=== PATIENT | male | born 1945 | race Caucasian/White ===

== ENCOUNTER 2017-10-14 06:37 | Day surgery (SDC) | payer OTHER, BC ==
[2017-10-09 12:16] VITALS: BMI 31.1
[2017-10-14] MEDS: CIPROFLOXACIN 0.3% EYE DROPS 5 ML BOTTLE ONE ×3 (07:15→07:25)
[2017-10-14] MEDS: CYCLOPENTOLATE 2% OPHTH SOLN 2 ML BOTTLE ONE ×3 (07:15→07:25)
[2017-10-14] MEDS: TROPICAMIDE 1% OPHTH SOLN 15 ML BOTTLE ONE ×3 (07:15→07:25)
[2017-10-14] MEDS: PHENYLEPHRINE 2.5% OPHTH SOLN 15 ML BOTTLE ONE ×3 (07:15→07:25)
[2017-10-14] MEDS ORDERED: TETRACAINE 0.5% OPHTH SOLN 2 ML BOTTLE ONE (07:23)
[2017-10-14] MEDS ORDERED: LIDOCAINE 1% P/F 10 MG/ML VIAL ONE (07:23)
[2017-10-14] MEDS ORDERED: CARBACHOL 0.01% INTRA-OCULAR 1.5 ML VIAL ONE (07:24)
[2017-10-14] MEDS ORDERED: BSS (NA/CA/MG/K) BALANCED SALT SOLUTION OPHTH SOLN 15 ML BOTTLE ONE (07:24)
[2017-10-14] MEDS ORDERED: NEO/POLYMYX B SULF/DEXAMETH OPHTHALMIC 5ML BOTTLE ONE (07:24)
[2017-10-14] MEDS ORDERED: MIDAZOLAM HCL 2 MG/2 ML SINGLE DOSE VIAL ONE ×2 (07:34→08:14)
[2017-10-14 08:45] VITALS: TEMP 97.9
--- NOTE | 2017-10-14 08:58 | OP ---
DATE OF OPERATION: 10/14/2017 OPERATIVE PROCEDURE: Lens phacoemulsification with posterior chamber intraocular lens placement, left eye. PREOPERATIVE DIAGNOSIS: Visually significant cataract of left eye. POSTOPERATIVE DIAGNOSIS: Visually significant cataract of left eye. SURGEON: Jules Mina MD ANESTHESIA: MAC. PROCEDURE: The patient was brought to the operating room and placed under monitored anesthesia care by Anesthesia. A drop of Tetracaine was then placed over the left eye. The patient was then prepped and draped in the usual sterile manner. A speculum was then placed over the left eye. The eye was then well irrigated with copious amounts of BSS (balanced salt solution). The operating microscope was then moved into position. A paracentesis was performed using a 15-degree blade. At this point, 0.5 mL of 1% preservative-free lidocaine was injected into the anterior chamber. Amvisc Plus was then injected into the anterior chamber. A clear corneal incision was then formed using a 2.2-mm keratome. A capsulorrhexis was then performed in a continuous circular fashion beginning with a cystotome, completed with an Utratas forceps. Hydrodissection was then performed using BSS on a cannula. The phaco probe was then introduced through the corneal wound and the cataract was removed using the phaco chop technique. Approximately 3 seconds of absolute phaco time was used. The remaining cortex was then removed using irrigation and aspiration with an I/A probe. he capsule was then filled with regular Amvisc and the capsule was noted to be intact. A previously selected foldable posterior chamber intraocular lens was then injected into the capsule through the corneal wound using a lens injector. It was then dialed into position using a Sinskey hook. The Amvisc was then removed using irrigation and aspiration. Miostat was then injected through the paracentesis to constrict the pupil. The paracentesis and corneal wound were then hydrated and noted to be water tight. A drop of Maxitrol was then placed over the eye. The speculum was removed and clear shield was taped over the eye. The patient tolerated the procedure well and there were no surgical complications. The patient was asked to follow up in my office the next day. JULES MINA M.D. [id number]
[2017-10-14 09:20] VITALS: BP 122/74; PULSE 58
== END 2017-10-14 09:25 | disposition home or self-care (01) ==
LOC: FASU 06:37
PROVIDERS: ATTEND Ophthalmology
PROC: 08RK3JZ Replacement of Left Lens with Synthetic Substitute, Percutaneous Approach (ICD-10-PCS; principal; 2017-10-14 08:16)
DX: H26.8 Other specified cataract (principal)

== ENCOUNTER 2017-12-08 19:46 | Observation (INO) | payer OTHER, BC ==
--- NOTE | 2017-12-08 20:08 | PDOC ---
History of Present Illness - General Stated Complaint: LEFT WEAKNESS/NUMBNESS Time Seen by Provider: 12/08/17 19:58 - History of Present Illness Initial Comments: 12/08/17 20:04 The patient is a 72 year old male with a history of HTN, HLD, DM who presents for evaluation of left sided numbness and weakness. The patient reports onset of left sided numbness and weakness beginning at 6:45 pm this evening about 1 hour 14 minutes ago prompting his presentation to the ED for evaluation. He reports worsening symptoms that then improved, then worsened, and now are improved. He currently denies any weakness, but does note some numbness in his left extremities. He otherwise denies fevers, chills, headache, SOB, chest pain , nausea, vomiting, abdominal pain or changes with urination or bowel movements. He denies any blood thinner use or similar symptoms in the past. tPA Exclusion Checklist 0-3hr - Time Elapsed Date last known well: 12/08/17 Time last known well: 18:45 Elaspsed time: Day(s) and 2 Hour(s) and 58 Minutes - Exclusion Criteria 0-3hr SBP greater than 185 or DBP greater than 110mmHg despite tx: No Recent IC/spinal surgery,head trauma or stroke w/in last 3mo: No Hx of previous IC hemorrhage, IC neoplasm, AVM or aneurysm: No Active internal bleeding: No Blding diathesis(low plt ct, inc PTT,INR>1.7 or use of NOAC): No Symptoms suggest subarachnoid hemorrhage: No CT demonstrates multilobar infarct(>1/3 cerebral hemiphere): No Arterial puncture at noncompressible site in previous 7 days: No Blood glucose concentration less than 50mg/dL (2.7mmol/L): No - Relative Exclusion Criteria 0-3h Life expectancy <1yr/severe co-morbid illness/TAX ACCOUNTING ASSISTANT on admit: No : No Patient/family refused: No Rapid improvement: Yes Stroke severity too mild: Yes Recent acute RI (w/in previous 3 months): No Seizure at onset with postictal residual neuro impairments: No Major surgery or serious trauma w/in previous 14 days: No Recent GI or hemorrhage (w/in previous 21 days): No - Ineligibility reason(s) Reasons No tPA given: See reason(s) noted above NIH Stroke Scale - Last Known Well Date/Time & Onset Date Last Known Well: 12/08/17 Time Last Known Well: 18:45 - Initial Evaluation Level of consciousness: Alert Ask patient the month and their age: Answers both correctly Ask patient to open & close eyes; make fist and let go: Obeys both correctly Best gaze (horizontal eye movement): Normal Visual field testing: No visual field loss Facial paresis (Show teeth/raise eyebrows/close eyes tight): Normal symmetrical movement Motor Function: Left Arm: Normal Motor Function: Right Arm: Normal (extends arm 90 (or 45) degrees for 10 seconds without drift Motor Function: Left Leg: Normal (extends leg 30 degrees for 5 seconds without drift) Motor Function: Right Leg: Normal (extends leg 30 degrees for 5 seconds without drift) Limb Ataxia: No ataxia Sensory(Use pinprick test arms,legs,trunk,face/side to side): Mild to moderate decrease in sensation Best language (Describe picture, name items, read sentences): No Aphasia Dysarthria (read several words): Normal articulation Extinction and Inattention: No abnormality - Total Score NIH Stroke Scale Score: 1 Past History - Past Medical History Allergies/Adverse Reactions: Allergies Allergy/AdvReac Type Severity Reaction Status Date / Time No Known Drug Allergies Allergy Verified 10/14/17 07:24 Home Medications: Ambulatory Orders Aspirin [Aspir 81] 81 mg PO DAILY 12/05/16 Atorvastatin Calcium 40 mg PO DAILY tablet 12/05/16 Chlorthalidone 12.5 mg PO DAILY tablet 12/05/16 Cholecalciferol (Vitamin D3) [Vitamin D3] 2,000 unit PO DAILY tablet 12/05/16 Metoprolol Succinate 25 mg PO DAILY tablet 03/16/17 Metformin HCl [Glucophage] 1,000 mg PO DAILY 10/09/17 Anemia: No Asthma: No (PT HAD TERRIBLE BRONCHITIS IN OCTOBER AND WAS SEEN IN ER 2016) Cancer: No Cardiac Disorders: No (RHEUMATIC FEVER A CHILD) CVA: No COPD: No CHF: No Dementia: No Diabetes: Yes GI Disorders: No Disorders: No HTN: Yes Hypercholesterolemia: Yes Liver Disease: No Seizures: No Thyroid Disease: No - Surgical History Abdominal Surgery: Yes (HERNIA REPAIR ACHILD) Appendectomy: No Cardiac Surgery: No Cholecystectomy: No Lung Surgery: No Neurologic Surgery: No Orthopedic Surgery: No - Suicide/Smoking/Psychosocial Hx Smoking History: Former smoker Have you smoked in the past 12 months: No If you are a former smoker, when did you quit?: 1987 Hx Alcohol Use: Yes (DAILY) Drug/Substance Use Hx: No Substance Use Type: Alcohol Hx Substance Use Treatment: No Review of Systems - Review of Systems Comments:: 12/08/17 20:22 Constitutional: No fevers, chills, fatigue, malaise HEENT: No Rhinorrhea, nasal congestion, visual changes Cardiovascular: No chest pain, syncope, palpitations, lightheadedness Respiratory: No Cough, SOB, Hemoptysis, Gastrointestinal: No Abdominal pain, Nausea, Vomiting, Constipation, Diarrhea, Melena Genitourinary: No Dysuria, Frequency, Urgency, Hesitancy, Hematuria, Flank pain Musculoskeletal: No Myalgia, arthralgia Skin: No rashes, itching, bruising, pallor Neurologic: Weakness, numbness. No Headache, Dizziness, or Tingling Psychiatric: No Hallucinations. No SI or HI *Physical Exam - Physical Exam Comments: 12/08/17 20:31 General Appearance: Nourished. No Apparent Distress HEENT: EOMI, RASHEED. No Pharyngeal Erythema, Tonsillar Exudate, Tonsillar Erythema Neck: No Cervical Lymphadenopathy Respiratory/Chest: Lungs Clear, Normal Breath Sounds. No Crackles, Rales, Rhonchi, Wheezing Cardiovascular: Regular Rhythm, Regular Rate. No Murmur, Gallops, Rubs Gastrointestinal/Abdominal: Normal Bowel Sounds, Soft. No Guarding, Rebound, Tenderness Musculoskeletal: No CVA Tenderness Extremity: Normal Capillary Refill Integumentary: Normal Color, Dry, Warm Neurologic: sheet taker II-XII NML intact, Fully Oriented, Alert, Normal Mood/Affect, Normal Response, Motor Strength 5/5. Normal Finger to Nose and Heel to Feliz. Decreased sensation to light touch in the left upper and left lower extremity when compared to the right. Normal Speech without aphasia. Heart Score/ECG Review #1 ECG reviewed & interpreted by me at: 21:44 (RBBB) General ECG Interpretation: Sinus Rhythm, Normal Rate, Normal Intervals, No acute ischemic changes Compared to previous ECG there are: Previous ECG unavail ED Treatment Course - LABORATORY CBC & Chemistry Diagram: 12/08/17 20:30 12/08/17 20:30 - RADIOLOGY Radiology Studies Ordered: Category Date Time Status HEAD CT (STROKE) [CT] Stat CT Scan 12/08/17 19:59 Ordered Medical Decision Making - Medical Decision Making 12/08/17 20:38 The patient is a 72 year old male with a history of HTN, HLD, DM who presents for evaluation of left sided numbness and weakness. Given the patient's history it is possible the patient experienced a TIA. A Code Grimm was called and head CT was obtained that did not demonstrate any acute pathology as read by our radiologist. The patient does not qualify for tpa at this time given his mild symptoms and rapid resolution of symptoms. We discussed the case with Dr. Dominguez with Neurology who is aware of the case and agrees with admission for MRI brain for further evaluation. We have obtained a cbc, cmp, lipid profile, troponin, as part of the lab work to evaluate further as well. We will continue to monitor and reassess. 12/08/17 21:43 CBC, cmp are unremarkable. Troponin is mildly elevated to 0.12. We discussed the case with the hospitalist team who accepted the patient for admission. We discussed the results and the plan with the patient who voiced understanding and is agreeable with the plan. *DC/Admit/Observation/Transfer Diagnosis at time of Disposition: TIA (transient ischemic attack) Qualifiers: Transient cerebral ischemia type: unspecified Qualified Code(s): G45.9 - Transient cerebral ischemic attack, unspecified - Discharge Dispostion Condition at time of disposition: Guarded Admit: Yes - Referrals - Patient Instructions - Post Discharge Activity
[2017-12-08] MEDS: SODIUM CHLORIDE 1,000 ML IV SCH (20:35)
[2017-12-08] MEDS ORDERED: ASPIRIN 81 MG CHEWABLE TABLETS PO ONE (20:35)
[2017-12-08 20:40] LABS: EOS % 4.8 % (0-4.5); HEMATOCRIT 38.6 % (35.4-49); HEMOGLOBIN 12.9 GM/dL (11.7-16.9); LYMPH % 32.7 % (8-40); MCH 31.3 pg (25.7-33.7); MCHC 33.4 g/dl (32.0-35.9); MEAN CELL VOLUME 93.7 fl (80-96); MEAN PLT VOLUME 8.6 fl (7.5-11.1); NEUT % 52.5 % (42.8-82.8); PLATELET COUNT 214 K/MM3 (134-434); RBC 4.12 M/mm3 (4.00-5.60); RDW 12.5 % (11.9-15.9); WHITE BLOOD COUNT 6.4 K/mm3 (4.0-10.0)
[2017-12-08 20:50] VITALS: BMI 31.1
[2017-12-08 20:52] LABS: INR 1.02 (0.82-1.09); PROTHROMBIN TIME (PATIENT) 11.5 SEC (9.98-11.88)
[2017-12-08] MEDS ORDERED: ASPIRIN 81 MG CHEWABLE TABLETS ONE (20:52)
[2017-12-08 21:01] LABS: ALBUMIN 3.8 g/dl (3.4-5.0); ANION GAP 5 (8-16); BILIRUBIN,TOTAL 0.4 mg/dL (0.2-1.0); BLOOD UREA NITROGEN 15 mg/dL (7-18); CALCIUM 8.5 mg/dL (8.5-10.1); CHLORIDE 105 mmol/L (98-107); CHOLESTEROL 112 mg/dL (50-200); CO2 31 mmol/L (21-32); GLUCOSE,RANDOM 130 mg/dL (74-106); LDL CHOLESTEROL (ONLY SJRH) 65 mg/dL (5-100); POTASSIUM 3.7 mmol/L (3.5-5.1); SGOT/AST 21 U/L (15-37); SGPT/ALT 26 U/L (12-78); SODIUM 141 mmol/L (136-145); TOT PROT 6.7 g/dl (6.4-8.2); TRIGLYCERIDES 92 mg/dL (35-160)
[2017-12-08 21:02] LABS: ALK PHOS 72 U/L (45-117); HDL CHOLESTEROL 43 mg/dL (40-60)
--- NOTE | 2017-12-08 22:14 | PDOC ---
Attending Attestation - Resident Resident Name: Jordi Wei - ED Attending Attestation I have performed the following: I have examined & evaluated the patient, The case was reviewed & discussed with the resident, I agree w/resident's findings & plan, Exceptions are as noted - HPI HPI: 12/08/17 22:12 Male brought in by ambulance after having left-sided weakness that started at 645. Upon arrival, patient was alert and oriented 3 and had an iron stroke scale of 1 for the left sided tingling and numbness. CAT scan of the head did not show any acute intracranial pathology, no hemorrhage, no infarct Neurologist Dr. KRISHNAMURTHY was consulted and patient was given aspirin and admitted to telemetry stroke - Physicial Exam PE: 12/08/17 22:14 72-year-old male brought in by ambulance with numbness and tingling to his arm, left arm and leg. Head normocephalic/atraumatic. Eyes pupils equal, reactive to light, extraocular movement intact. Neck is supple Lungs are clear to auscultation. CVS regular rate and rhythm S1, S2 Abdomen nontender. Extremities full range of motion. Skin is warm and dry. Alert and oriented 3, no facial droop, no slurred speech, no confusion, he does have subjective numbness and tingling to left arm and le -HE no ataxia, no visual deficits, no neglect or field cuts - Medical Decision Making 12/08/17 22:16 cva no TPA because SYMPTOMS TOO MILD
--- NOTE | 2017-12-08 22:20 | HP ---
CHIEF COMPLAINT: Recurrent L sided weakness and numbness X1 day PCP: Dr Tyler Epps (cardio) HISTORY OF PRESENT ILLNESS: Pt is a 72 yo M with PMHx of HTN, HLD, DM presenting with 1 day hx of recurrent L sided weakness and numbness. Pt noted a "floating sensation" of his L side from his neck to his leg following exertion ( walking uphill then up the stairs to his room) around 6.30pm today. After resting for a while (in the presence of his ), they called 911. Pt walked downstairs independently to meet the EMS, but then had recurrence of the weakness of his L side. No hx of palpitations prior or during the period. No SOB, orthopnea/PND/ leg swelling /chest pain/slurring of speech/blurring of vision or headaches. No fever, loss of consciousness or seizures. 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 No hx of similar illness in past. No recent sick contacts. Pt has been compliant on his medications, last dose this am, and is active. In the ambulance, Pt noted that his blood pressure was elevated to about 170/90 and has gradually reverted back to about 130/80. On arrival at the ED, Pt's symptoms had resolved with NIH score-1 and pt did not receive tPA. Dr Dominguez was also contacted in the ED and he requested an MRI of the brain. ER course was notable for: (1)Trops-0.12, CKMB-8.388, EKG- poor tracings, but no evidence of acute ischemia (2)ASA 81, Normal saline (3) CT head- no acute pathology, CXR- cardiomegaly (4) Lipid panel, CMP, CBC Recent Travel: PAST MEDICAL HISTORY: HTN, HLD, DM PAST SURGICAL HISTORY: Herniorrhaphy (at 3yrs) Social History: Smoking:smoked pipe for 20years, stopped 30years ago Alcohol:Social Drugs: Never Family History: No FHx of cardiac pathology or DM Allergies No Known Drug Allergies Allergy (Verified 10/14/17 07:24) HOME MEDICATIONS: Home Medications Medication Instructions Recorded Aspirin [Aspir 81] 81 mg PO DAILY 12/05/16 Atorvastatin Calcium 40 mg PO DAILY tablet 12/05/16 Chlorthalidone 12.5 mg PO DAILY tablet 12/05/16 Cholecalciferol (Vitamin D3) 2,000 unit PO DAILY tablet 12/05/16 [Vitamin D3] Metoprolol Succinate 25 mg PO DAILY tablet 03/16/17 Metformin HCl [Glucophage] 1,000 mg PO DAILY 10/09/17 REVIEW OF SYSTEMS CONSTITUTIONAL: Absent: fever, chills, diaphoresis, generalized weakness, malaise, loss of appetite, weight change HEENT: Absent: rhinorrhea, nasal congestion, throat pain, throat swelling, difficulty swallowing, mouth swelling, ear pain, eye pain, visual changes CARDIOVASCULAR: Absent: chest pain, syncope, palpitations, irregular heart rate, lightheadedness , peripheral edema RESPIRATORY: Absent: cough, shortness of breath, dyspnea with exertion, orthopnea, wheezing, stridor, hemoptysis GASTROINTESTINAL: Absent: abdominal pain, abdominal distension, nausea, vomiting, diarrhea, constipation, melena, hematochezia GENITOURINARY: Absent: dysuria, frequency, urgency, hesitancy, hematuria, flank pain, genital pain MUSCULOSKELETAL: Absent: myalgia, arthralgia, joint swelling, back pain, neck pain SKIN: Absent: rash, itching, pallor HEMATOLOGIC/IMMUNOLOGIC: Absent: easy bleeding, easy bruising, lymphadenopathy, frequent infections ENDOCRINE: Absent: unexplained weight gain, unexplained weight loss, heat intolerance, cold intolerance NEUROLOGIC: Absent: headache, focal weakness or paresthesias, dizziness, unsteady gait, seizure, mental status changes, bladder or bowel incontinence PSYCHIATRIC: Absent: anxiety, depression, suicidal or homicidal ideation, hallucinations. PHYSICAL EXAMINATION Vital Signs - 24 hr 12/08/17 19:55 Temperature 98.0 F Pulse Rate 63 Respiratory 17 Rate Blood Pressure 137/83 O2 Sat by Pulse 97 Oximetry (%) GENERAL: Obese, pleasant, Awake, alert, and fully oriented, obeys commands,in no acute distress, on room air. HEAD: Normal with no signs of trauma. EYES: Normal gaze, Pupils equal, round and reactive to light, extraocular movements intact, sclera anicteric, conjunctiva clear. EARS, NOSE, THROAT: Ears normal, nares patent, oropharynx clear without exudates. Moist mucous membranes. NECK: Normal range of motion, supple without lymphadenopathy, JVD, or masses. LUNGS: Breath sounds equal, clear to auscultation bilaterally. No wheezes, and no crackles. HEART: Regular rate and rhythm, normal S1 and S2 without murmur, rub or gallop. ABDOMEN: Soft, nontender, obese, normoactive bowel sounds, no guarding, no rebound, no masses. MUSCULOSKELETAL: Normal range of motion at all joints. No bony deformities or tenderness. No CVA tenderness. UPPER EXTREMITIES: 2+ pulses, warm, well-perfused. No cyanosis. No clubbing. No peripheral edema. Absent drift bilaterally LOWER EXTREMITIES: 2+ pulses, warm, well-perfused. No calf tenderness. No peripheral edema. Absent drift bilaterally, absent limb ataxia NEUROLOGICAL: Absent facial palsy, Cranial nerves II-XII intact. Normal speech , no aphasia, no dysarthria. gait not observed. Absent extinction/inattention. NIH score-0 PSYCHIATRIC: Cooperative. Good eye contact. Appropriate mood and affect. CBC, BMP 12/08/17 20:30 12/08/17 20:30 Laboratory Results - last 24 hr 12/08/17 12/08/17 12/08/17 20:30 20:30 20:30 WBC 6.4 RBC 4.12 Hgb 12.9 Hct 38.6 MCV 93.7 MCH 31.3 MCHC 33.4 RDW 12.5 Plt Count 214 MPV 8.6 Neutrophils % 52.5 Lymphocytes % 32.7 Monocytes % 9.0 Eosinophils % 4.8 H Basophils % 1.0 PT with INR INR Sodium 141 Potassium 3.7 Chloride 105 Carbon Dioxide 31 Anion Gap 5 L BUN 15 Creatinine 1.0 Creat Clearance w eGFR > 60 Random Glucose 130 H Calcium 8.5 Total Bilirubin 0.4 AST 21 ALT 26 Alkaline Phosphatase 72 Creatine Kinase 235 Creatine Kinase Index 3.5 CK-MB (CK-2) 8.388 H Troponin I 0.12 H Total Protein 6.7 Albumin 3.8 Triglycerides 92 Cholesterol 112 Total LDL Cholesterol 65 HDL Cholesterol 43 Blood Type A POSITIVE Antibody Screen Negative 12/08/17 20:35 WBC RBC Hgb Hct MCV MCH MCHC RDW Plt Count MPV Neutrophils % Lymphocytes % Monocytes % Eosinophils % Basophils % PT with INR 11.50 INR 1.02 Sodium Potassium Chloride Carbon Dioxide Anion Gap BUN Creatinine Creat Clearance w eGFR Random Glucose Calcium Total Bilirubin AST ALT Alkaline Phosphatase Creatine Kinase Creatine Kinase Index CK-MB (CK-2) Troponin I Total Protein Albumin Triglycerides Cholesterol Total LDL Cholesterol HDL Cholesterol Blood Type Antibody Screen Ambulatory Orders Aspirin [Aspir 81] 81 mg PO DAILY 12/05/16 Atorvastatin Calcium 40 mg PO DAILY tablet 12/05/16 Chlorthalidone 12.5 mg PO DAILY tablet 12/05/16 Cholecalciferol (Vitamin D3) [Vitamin D3] 2,000 unit PO DAILY tablet 12/05/16 Metoprolol Succinate 25 mg PO DAILY tablet 03/16/17 Metformin HCl [Glucophage] 1,000 mg PO DAILY 10/09/17 ASSESSMENT/PLAN: 72 yo M with PMHx of HTN, HLD, DM presenting with 1 day hx of recurrent L sided weakness and numbness. TIA/CVA: Recurrent L sided weakness and numbness after exertion Current NIH scale=0 CT head MRI brain Neuro consult- Dr Dominguez ASA 81 stat and daily Atorvastatin 80mg daily TSH/ESR L carotid duplex B12/folate Speech/swallow eval PT Repeat EKG- RBBB, LAFB, vent rate 53/min, QTc-452 trend trops1.2>>1.[address] Epps-consult Elevated troponin: Could be demand ischemia Trend trops repeat EKG HTN: Continue Chorthalidone 12.5 mg daily Cont metoprolol 25 mg DM: ISS BGM- ACHS Hold metformin HLD: Atorvostatin increased from 40mg to 80mg FEN: Received NS in ED Monitor lytes and replete NPO overnight DM/Sodium controlled diet in am PPx: SCDs ` Visit type - Emergency Visit Emergency Visit: Yes ED Registration Date: 12/08/17 Care time: The patient presented to the Emergency Department on the above date and was hospitalized for further evaluation of their emergent condition. - New Patient This patient is new to me today: Yes Date on this admission: 12/09/17 - Critical Care Critical Care patient: No Hospitalist Screening - Colonoscopy Questionnaire Colonoscopy Questionnaire: Colonoscopy Questionnaire - Patient: 50 - 75 years old and never had a screening colonoscopy: No History of colon or rectal polyps, or CA: No History of IBD, Crohn's disease or UC: No History of abdominal radiation therapy as a child: No - Relative: 1 with colon or rectal CA, or polyps at age 60 or younger: No Colon or rectal CA diagnosed at age 45 or younger: No Multiple relatives with colon or rectal CA: No - Outcome: Screening Result: Negative Screen
--- NOTE | 2017-12-08 23:08 | PN ---
Teaching Attending Note Name of Resident: Sandy Low ATTENDING PHYSICIAN STATEMENT I saw and evaluated the patient. I reviewed the resident's note and discussed the case with the resident. I agree with the resident's findings and plan as documented. SUBJECTIVE: 72 M with pmhx. of DM, HTN, HLD who presents with L. arm/leg weakness "floating sensation". States this started at aroudn 6:45 pm and had resolved after sveral minutes. This Sensation happened 3 different times. Denies any chest pain or pressure. No n,v,d. No headaches, dizziness, or lightheadedness. OBJECTIVE: Physical: VS: Vital Signs Period Temp Pulse Resp BP Sys/Cummins Pulse Ox Last 24 Hr 98.0 F 63-70 17-21 133-137/83-87 97-98 GEN: NAD, Resting in bed, AA0X3 HEENT:NCAT, PERRL, Throat without erythema or exudates CARD: RRR S1, S2 RESP: CTAB ABD: BSx4, NTD to palpation EXT:- C/C/E NEURO: CN II-XII intact, MS +5/5 Bilateral UE/LE CBCD WBC 6.4 K/mm3 (4.0-10.0) 12/08/17 20:30 RBC 4.12 M/mm3 (4.00-5.60) 12/08/17 20:30 Hgb 12.9 GM/dL (11.7-16.9) 12/08/17 20:30 Hct 38.6 % (35.4-49) 12/08/17 20:30 MCV 93.7 fl (80-96) 12/08/17 20:30 MCHC 33.4 g/dl (32.0-35.9) 12/08/17 20:30 RDW 12.5 % (11.9-15.9) 12/08/17 20:30 Plt Count 214 K/MM3 (134-434) 12/08/17 20:30 MPV 8.6 fl (7.5-11.1) 12/08/17 20:30 CMP Sodium 141 mmol/L (136-145) 12/08/17 20:30 Potassium 3.7 mmol/L (3.5-5.1) 12/08/17 20:30 Chloride 105 mmol/L (98-107) 12/08/17 20:30 Carbon Dioxide 31 mmol/L (21-32) 12/08/17 20:30 Anion Gap 5 (8-16) L 12/08/17 20:30 BUN 15 mg/dL (7-18) 12/08/17 20:30 Creatinine 1.0 mg/dL (0.7-1.3) 12/08/17 20:30 Creat Clearance w eGFR > 60 (>60) 12/08/17 20:30 Random Glucose 130 mg/dL (74-106) H 12/08/17 20:30 Calcium 8.5 mg/dL (8.5-10.1) 12/08/17 20:30 Total Bilirubin 0.4 mg/dL (0.2-1.0) 12/08/17 20:30 AST 21 U/L (15-37) 12/08/17 20:30 ALT 26 U/L (12-78) 12/08/17 20:30 Alkaline Phosphatase 72 U/L (45-117) 12/08/17 20:30 Total Protein 6.7 g/dl (6.4-8.2) 12/08/17 20:30 Albumin 3.8 g/dl (3.4-5.0) 12/08/17 20:30 CARDIAC ENZYMES Creatine Kinase 235 IU/L (39-308) 12/08/17 20:30 Troponin I 0.12 ng/ml (0.00-0.05) H 12/08/17 20:30 CT HEAD- Negative for acute Pathology QtC 451 CXR- Cardiomegaly ASSESSMENT AND PLAN: 72 M with pmhx. of DM, HTN, HLD who presents with L. arm/leg weakness, being admitted for CVA/TIA rule out 1.) CVA/TIA - MRI Brain wo contrast - Atorvastatin 80 - Lipid Pane/A1C - TSH, B12, Folate, ESR - Trend Trops/EKG - Echo/Carotid - Neuro consulted and spoken to by Ed - ASA 2.) Troponin Elevation - Demand Ro acs - Echo - Trend Trop/EKG - Cardio Consult 2.) DM -Fs - RAISS 3.) HTN - C/W Home meds 4.) Dvt Ppx - SCDs Place in Stroke Tele
--- NOTE | 2017-12-08 23:20 | MSN ---
Admitting History and Physical - Admission Chief Complaint: Left sided weakness History of Present Illness: Pt is a 72yo male with PMHx significant for DM, HLD, HTN, and Rheumatic Heart disease at age 3 without residual symptoms. Pt presented to the ED today c/o left sided weakness starting around 1830 this evening. Pt went for a walk outside his house, as he usually does, and when he returned home he noticed a "floating" sensation in his left arm and leg as well as an abnormal sensation on the left side of his body as well. Pt laid down without a fall, and called an ambulance where he was found to have a blood pressure of about 180 systolic which has since returned to his baseline. His left sided symptoms resolved and re-occurred when EMS arrived, pt is currently asymptomatic in the ED. Pt denies any slurring of his speech, headaches, chest pain, SOB (out of the ordinary after his walk), changes in vision, ringing in his ears, nausea/vomiting, fever/ chills. Pt denies any history of similar symptoms and denies and significant family medical history. History Source: Patient Limitations to Obtaining History: No Limitations - Past Medical History HEATER FURNACE: No: CVA, TIA Cardiovascular: Yes: HTN, Hyperlipdemia Endocrine: Yes: Diabetes Mellitus - Past Surgical History Past Surgical History: Yes: Hernia Repair - Smoking History Smoking history: Former smoker (20 year history tobacco out of pipe) Have you smoked in the past 12 months: No If you are a former smoker, when did you quit?: 1987 - Alcohol/Substance Use Hx Alcohol Use: Yes (DAILY) Number of Drinks Daily: 1 (Rum) History of Substance Use: reports: None - Social History Usual Living Arrangement: Yes: With Significant Other ADL: Independent History of Recent Travel: No Home Medications - Allergies Allergies/Adverse Reactions: Allergies Allergy/AdvReac Type Severity Reaction Status Date / Time No Known Drug Allergies Allergy Verified 10/14/17 07:24 - Home Medications Home Medications: Ambulatory Orders Aspirin [Aspir 81] 81 mg PO DAILY 12/05/16 Atorvastatin Calcium 40 mg PO DAILY tablet 12/05/16 Chlorthalidone 12.5 mg PO DAILY tablet 12/05/16 Cholecalciferol (Vitamin D3) [Vitamin D3] 2,000 unit PO DAILY tablet 12/05/16 Metoprolol Succinate 25 mg PO DAILY tablet 03/16/17 Metformin HCl [Glucophage] 1,000 mg PO DAILY 10/09/17 Family Disease History - Family Disease History Family History: Denies Review of Systems - Review of Systems Constitutional: denies: Diaphoresis, Fever Eyes: denies: Blurred Vision, Recent Change in Vision HENT: denies: Ringing in Ears Neck: denies: Lumps, Swollen Glands Cardiovascular: denies: Chest Pain, Edema, Shortness of Breath Respiratory: reports: SOB on Exertion Gastrointestinal: denies: Abdominal Pain, Constipation, Diarrhea, Nausea, Vomiting Genitourinary: denies: No Symptoms Musculoskeletal: denies: Muscle Weakness Neurological: denies: Change in Speech, Confusion, Dizziness, Headache, Incoordination, Numbness, Parasthesia, Seizure, Tremors, Weakness Physical Examination Vital Signs: Vital Signs Temperature 98.0 F 12/08/17 19:55 Pulse Rate 70 12/08/17 22:50 Respiratory Rate 21 12/08/17 22:50 Blood Pressure 133/87 12/08/17 22:50 O2 Sat by Pulse Oximetry (%) 98 12/08/17 22:50 Constitutional: Yes: No Distress, Calm, Obese Eyes: Yes: Conjunctiva Clear, EOM Intact, PERRL HENT: Yes: Atraumatic, Normocephalic Neck: Yes: Trachea Midline. No: Lymphadenopathy, Tenderness Cardiovascular: Yes: Regular Rate and Rhythm. No: JVD, Murmur Respiratory: Yes: CTA Bilaterally Gastrointestinal: Yes: Normal Bowel Sounds, Soft, Abdomen, Obese. No: Tenderness Musculoskeletal: No: Muscle Weakness Edema: No Peripheral Pulses WNL: Yes Peripheral Pulses: Left Radial: 2+, Right Radial: 2+, Left Doralis Pedis: 2+, Right Dorsalis Pedis: 2+ Neurological: Yes: Alert, Oriented, Cran Nerves II-XII Intact. No: Dysarthria, Facial Droop, Loss of Sensation, Numbness, Paresthesia, Tremors, Weakness ...Motor Strength: WNL Psychiatric: Yes: Alert, Oriented Labs: CBC, BMP 12/08/17 20:30 12/08/17 20:30 Problem List - Problems (1) TIA (transient ischemic attack) Code(s): G45.9 - TRANSIENT CEREBRAL ISCHEMIC ATTACK, UNSPECIFIED Qualifiers: Transient cerebral ischemia type: unspecified Qualified Code(s): G45.9 - Transient cerebral ischemic attack, unspecified (2) HTN (hypertension) Code(s): I10 - ESSENTIAL (PRIMARY) HYPERTENSION (3) HLD (hyperlipidemia) Code(s): E78.5 - HYPERLIPIDEMIA, UNSPECIFIED (4) Diabetes Code(s): E11.9 - TYPE 2 DIABETES MELLITUS WITHOUT COMPLICATIONS Assessment/Plan #TIA/CVA CT scan negative. Neuro consult - MRI f/u in the morning Lipid panel, A1C, B12, Folate, ESR, TSH Carotid Doppler/Echo C/w aspirin 81mg Inc atorvastatin to 80mg #Elevated tropinin r/o ACS 0.12 trops - trend Echo Repeat EKG #HTN c/w metoprolol and chlorthalidone #HLD increase to atorvastatin 80mg #DM c/w metformin
[2017-12-09 06:09] LABS: BASO % 1.1 % (0-2.0); EOS % 5.9 % (0-4.5); HEMATOCRIT 39.3 % (35.4-49); HEMOGLOBIN 13.3 GM/dL (11.7-16.9); LYMPH % 38.3 % (8-40); MCH 31.6 pg (25.7-33.7); MCHC 33.8 g/dl (32.0-35.9); MEAN CELL VOLUME 93.5 fl (80-96); MEAN PLT VOLUME 8.7 fl (7.5-11.1); MONO % 9.4 % (3.8-10.2); NEUT % 45.3 % (42.8-82.8); PLATELET COUNT 213 K/MM3 (134-434); RBC 4.21 M/mm3 (4.00-5.60); RDW 12.7 % (11.9-15.9); WHITE BLOOD COUNT 5.8 K/mm3 (4.0-10.0)
[2017-12-09 06:26] LABS: INR 1.02 (0.82-1.09); PROTHROMBIN TIME (PATIENT) 11.5 SEC (9.98-11.88)
[2017-12-09 06:29] LABS: ACTIVATED PTT 34.6 SECONDS (26.9-34.4)
[2017-12-09 06:30] LABS: ALBUMIN 3.7 g/dl (3.4-5.0); ANION GAP 5 (8-16); BILIRUBIN,TOTAL 0.5 mg/dL (0.2-1.0); BLOOD UREA NITROGEN 15 mg/dL (7-18); CALCIUM 8.2 mg/dL (8.5-10.1); CHLORIDE 107 mmol/L (98-107); CO2 30 mmol/L (21-32); CREATININE 0.9 mg/dL (0.7-1.3); GLUCOSE,RANDOM 113 mg/dL (74-106); MAGNESIUM 2.2 mg/dL (1.8-2.4); PHOSPHOROUS 3.8 mg/dL (2.5-4.9); POTASSIUM 4.1 mmol/L (3.5-5.1); SGOT/AST 19 U/L (15-37); SGPT/ALT 25 U/L (12-78); SODIUM 142 mmol/L (136-145); TOT PROT 6.6 g/dl (6.4-8.2)
[2017-12-09 06:38] LABS: ALK PHOS 71 U/L (45-117)
[2017-12-09] MEDS: INSULIN SLIDING SCALE (NOVOLOG) 1 VIAL SQ SCH ×4 (08:29→22:08)
[2017-12-09 08:52] LABS: ERYTHROCYTE SEDIMENTATION RATE 5 mm/hr (0-20)
--- NOTE | 2017-12-09 10:16 | CONSULT ---
Consult - text type - Consultation Consultation Note: Neurology CHIEF COMPLAINT: Recurrent L sided weakness and numbness X1 day HISTORY OF PRESENT ILLNESS: Pt is a 72 yo M with PMHx of HTN, HLD, DM presenting with 1 day hx of recurrent L sided weakness and numbness. Pt noted a "floating sensation" of his L side from his neck to his leg following exertion ( walking uphill then up the stairs to his room) on day of admission. After resting for a while (in the presence of his ), they called 911. He walked downstairs independently to meet the EMS, but then had recurrence of the weakness of his L side. No hx of palpitations prior or during the period. No SOB , orthopnea/PND/ leg swelling /chest pain/slurring of speech/blurring of vision or headaches. Patient noted that his blood pressure was elevated to about 170/ 90 and had gradually reverted back to about 130/80 in the ER. Per notes, on arrival at the ED, his symptoms had resolved with NIH score-1 and pt did not receive tPA due to improving exam. CT head without acute changes. Is on daily ASA. Ordered for MRI brain. Reports no deficits this AM. PAST MEDICAL HISTORY: HTN, HLD, DM PAST SURGICAL HISTORY: Herniorrhaphy (at 3yrs) Social History: Smoking:smoked pipe for 20years, stopped 30years ago Alcohol:Social Drugs: Never Family History: No FHx of cardiac pathology or DM Allergies No Known Drug Allergies Allergy (Verified 10/14/17 07:24) HOME MEDICATIONS: Home Medications Medication Instructions Recorded Aspirin [Aspir 81] 81 mg PO DAILY 12/05/16 Atorvastatin Calcium 40 mg PO DAILY tablet 12/05/16 Chlorthalidone 12.5 mg PO DAILY tablet 12/05/16 Cholecalciferol (Vitamin D3) 2,000 unit PO DAILY tablet 12/05/16 [Vitamin D3] Metoprolol Succinate 25 mg PO DAILY tablet 03/16/17 Metformin HCl [Glucophage] 1,000 mg PO DAILY 10/09/17 REVIEW OF SYSTEMS CONSTITUTIONAL: Absent: fever, chills, diaphoresis, generalized weakness, malaise, loss of appetite, weight change HEENT: Absent: rhinorrhea, nasal congestion, throat pain, throat swelling, difficulty swallowing, mouth swelling, ear pain, eye pain, visual changes CARDIOVASCULAR: Absent: chest pain, syncope, palpitations, irregular heart rate, lightheadedness , peripheral edema RESPIRATORY: Absent: cough, shortness of breath, dyspnea with exertion, orthopnea, wheezing, stridor, hemoptysis GASTROINTESTINAL: Absent: abdominal pain, abdominal distension, nausea, vomiting, diarrhea, constipation, melena, hematochezia GENITOURINARY: Absent: dysuria, frequency, urgency, hesitancy, hematuria, flank pain, genital pain MUSCULOSKELETAL: Absent: myalgia, arthralgia, joint swelling, back pain, neck pain SKIN: Absent: rash, itching, pallor HEMATOLOGIC/IMMUNOLOGIC: Absent: easy bleeding, easy bruising, lymphadenopathy, frequent infections ENDOCRINE: Absent: unexplained weight gain, unexplained weight loss, heat intolerance, cold intolerance NEUROLOGIC: Absent: headache, focal weakness or paresthesias, dizziness, unsteady gait, seizure, mental status changes, bladder or bowel incontinence PSYCHIATRIC: Absent: anxiety, depression, suicidal or homicidal ideation, hallucinations. PHYSICAL EXAMINATION Vital Signs Period Temp Pulse Resp BP Sys/Cummins Pulse Ox Last 24 Hr 98.0 F 55-76 16-21 116-137/54-91 97-99 GENERAL: Obese, pleasant, Awake, alert, and fully oriented, obeys commands,in no acute distress, on room air. HEAD: Normal with no signs of trauma. EYES: Normal gaze, Pupils equal, round and reactive to light, extraocular movements intact, sclera anicteric, conjunctiva clear. EARS, NOSE, THROAT: Ears normal, nares patent, oropharynx clear without exudates. Moist mucous membranes. NECK: Normal range of motion, supple without lymphadenopathy, JVD, or masses. LUNGS: Breath sounds equal, clear to auscultation bilaterally. No wheezes, and no crackles. HEART: Regular rate and rhythm, normal S1 and S2 without murmur, rub or gallop. ABDOMEN: Soft, nontender, obese, normoactive bowel sounds, no guarding, no rebound, no masses. MUSCULOSKELETAL: Normal range of motion at all joints. No bony deformities or tenderness. No CVA tenderness. UPPER EXTREMITIES: 2+ pulses, warm, well-perfused. No cyanosis. No clubbing. No peripheral edema. Absent drift bilaterally LOWER EXTREMITIES: 2+ pulses, warm, well-perfused. No calf tenderness. No peripheral edema. Absent drift bilaterally, absent limb ataxia NEUROLOGICAL: Absent facial palsy, Cranial nerves II-XII intact. Normal speech , no aphasia, no dysarthria. gait deferred. PSYCHIATRIC: Cooperative. Good eye contact. Appropriate mood and affect. CBCD WBC 5.8 K/mm3 (4.0-10.0) 12/09/17 05:56 RBC 4.21 M/mm3 (4.00-5.60) 12/09/17 05:56 Hgb 13.3 GM/dL (11.7-16.9) 12/09/17 05:56 Hct 39.3 % (35.4-49) 12/09/17 05:56 MCV 93.5 fl (80-96) 12/09/17 05:56 MCHC 33.8 g/dl (32.0-35.9) 12/09/17 05:56 RDW 12.7 % (11.9-15.9) 12/09/17 05:56 Plt Count 213 K/MM3 (134-434) 12/09/17 05:56 MPV 8.7 fl (7.5-11.1) 12/09/17 05:56 CMP Sodium 142 mmol/L (136-145) 12/09/17 05:56 Potassium 4.1 mmol/L (3.5-5.1) 12/09/17 05:56 Chloride 107 mmol/L (98-107) 12/09/17 05:56 Carbon Dioxide 30 mmol/L (21-32) 12/09/17 05:56 Anion Gap 5 (8-16) L 12/09/17 05:56 BUN 15 mg/dL (7-18) 12/09/17 05:56 Creatinine 0.9 mg/dL (0.7-1.3) 12/09/17 05:56 Creat Clearance w eGFR > 60 (>60) 12/09/17 05:56 Calcium 8.2 mg/dL (8.5-10.1) L 12/09/17 05:56 Total Bilirubin 0.5 mg/dL (0.2-1.0) D 12/09/17 05:56 AST 19 U/L (15-37) 12/09/17 05:56 ALT 25 U/L (12-78) 12/09/17 05:56 Alkaline Phosphatase 71 U/L (45-117) 12/09/17 05:56 Total Protein 6.6 g/dl (6.4-8.2) 12/09/17 05:56 Albumin 3.7 g/dl (3.4-5.0) 12/09/17 05:56 ASSESSMENT/PLAN: 72 yo M with PMHx of HTN, HLD, DM presenting with 1 day hx of recurrent L sided weakness and numbness. Not a TPA candidate with improving exam and NIHSS of 1. CT head without acute changes Carotid dopplers reviewed and small to mod plaques without HD signficiant stenosis MRI brain pending Continue ASA 81mg for now Continue Statin, goal LDL <100 (<70 if CVA found on MRI) Cardiology eval tele monitoring Echo BP control, goal <140/90 for now, <130/80 as outpatient Physical therapy as needed Tight glycemic control Continue Metformin
--- NOTE | 2017-12-09 10:32 | EKG ---
Test Reason : Blood Pressure : / mmHG Vent. Rate : 057 BPM Atrial Rate : 057 BPM P-R Int : 248 ms QRS Dur : 152 ms QT Int : 464 ms P-R-T Axes : 049 -45 -08 degrees QTc Int : 451 ms POOR DATA QUALITY, INTERPRETATION MAY BE ADVERSELY AFFECTED SINUS BRADYCARDIA WITH 1ST DEGREE A-V BLOCK RIGHT BUNDLE BRANCH BLOCK LEFT ANTERIOR FASCICULAR BLOCK BIFASCICULAR BLOCK MINIMAL VOLTAGE CRITERIA FOR LVH, MAY BE NORMAL VARIANT ABNORMAL ECG NO PREVIOUS ECGS AVAILABLE Confirmed by ELIZABETH GUIDO, GODFREY ([id number]) on 12/09/2017 10:31:38 AM Referred By: Confirmed By:GODFREY JOHNSON MD
[2017-12-09] MEDS: CHLORTHALIDONE 25 MG TABLET PO SCH (10:40)
[2017-12-09] MEDS: metoPROLOL SUCCINATE 25 MG TAB.SR.24H (FP) PO SCH (10:40)
[2017-12-09] MEDS: ASPIRIN COATED 81 MG TABLET.EC PO SCH (10:40)
[2017-12-09] MEDS: CHOLECALCIFEROL (VITAMIN D3) 1,000 UNIT TABLET (FP) PO SCH (10:40)
--- NOTE | 2017-12-09 11:06 | EKG ---
Test Reason : Blood Pressure : / mmHG Vent. Rate : 053 BPM Atrial Rate : 053 BPM P-R Int : 252 ms QRS Dur : 164 ms QT Int : 482 ms P-R-T Axes : 075 -47 -12 degrees QTc Int : 452 ms SINUS BRADYCARDIA WITH 1ST DEGREE A-V BLOCK RIGHT BUNDLE BRANCH BLOCK LEFT ANTERIOR FASCICULAR BLOCK BIFASCICULAR BLOCK ABNORMAL ECG WHEN COMPARED WITH ECG OF 08-DEC-2017 21:17, NO SIGNIFICANT CHANGE WAS FOUND Confirmed by ELIZABETH GUIDO, OGDFREY ([id number]) on 12/09/2017 11:06:20 AM Referred By: Confirmed By:GODFREY JOHNSON MD
--- NOTE | 2017-12-09 11:30 | CON.CARD ---
Cardiology Consult (text) - Consultation Consultation Note: cc: left sided numbness/weakness hpi: 72 m hx htn, hld, dm, here with left sided numbness/weakness. Started yesterday, now almost fully resolved. No cp, sob, palps, dizzy, loc, pnd, orthopnea, le edema. No hx hrt dz or cva/tia. pmh: per hpi psh: hernia repair social: ex tob fam: no premature cad ros: per hpi; no nvd, fever, lange, vision changes, gib, hematuria, dysuria, muscle pain meds: Home Medications Medication Instructions Recorded Aspirin [Aspir 81] 81 mg PO DAILY 12/05/16 Atorvastatin Calcium 40 mg PO DAILY tablet 12/05/16 Chlorthalidone 12.5 mg PO DAILY tablet 12/05/16 Cholecalciferol (Vitamin D3) 2,000 unit PO DAILY tablet 12/05/16 [Vitamin D3] Metoprolol Succinate 25 mg PO DAILY tablet 03/16/17 Metformin HCl [Glucophage] 1,000 mg PO DAILY 10/09/17 pe: Vital Signs Period Temp Pulse Resp BP Sys/Cummins Pulse Ox Last 24 Hr 98.0 F 55-76 16-21 116-137/54-91 97-99 nad no jvd rrr s1s2 no mrg cta bl nl eff aaox3 no le e/c/c abd nt nd pos bs no jaundice diaphoresis pos dp pt no carotid bruits Laboratory Last Values WBC 5.8 K/mm3 (4.0-10.0) 12/09/17 05:56 RBC 4.21 M/mm3 (4.00-5.60) 12/09/17 05:56 Hgb 13.3 GM/dL (11.7-16.9) 12/09/17 05:56 Hct 39.3 % (35.4-49) 12/09/17 05:56 MCV 93.5 fl (80-96) 12/09/17 05:56 MCH 31.6 pg (25.7-33.7) 12/09/17 05:56 MCHC 33.8 g/dl (32.0-35.9) 12/09/17 05:56 RDW 12.7 % (11.9-15.9) 12/09/17 05:56 Plt Count 213 K/MM3 (134-434) 12/09/17 05:56 MPV 8.7 fl (7.5-11.1) 12/09/17 05:56 Neutrophils % 45.3 % (42.8-82.8) 12/09/17 05:56 Lymphocytes % 38.3 % (8-40) 12/09/17 05:56 Monocytes % 9.4 % (3.8-10.2) 12/09/17 05:56 Eosinophils % 5.9 % (0-4.5) H 12/09/17 05:56 Basophils % 1.1 % (0-2.0) 12/09/17 05:56 ESR 5 mm/hr (0-20) 12/09/17 05:56 PT with INR 11.50 SEC (9.98-11.88) 12/09/17 05:56 INR 1.02 (0.82-1.09) 12/09/17 05:56 PTT (Actin FS) 34.6 SECONDS (26.9-34.4) H 12/09/17 05:56 Sodium 142 mmol/L (136-145) 12/09/17 05:56 Potassium 4.1 mmol/L (3.5-5.1) 12/09/17 05:56 Chloride 107 mmol/L (98-107) 12/09/17 05:56 Carbon Dioxide 30 mmol/L (21-32) 12/09/17 05:56 Anion Gap 5 (8-16) L 12/09/17 05:56 BUN 15 mg/dL (7-18) 12/09/17 05:56 Creatinine 0.9 mg/dL (0.7-1.3) 12/09/17 05:56 Creat Clearance w eGFR > 60 (>60) 12/09/17 05:56 POC Glucometer 138.11809 UNITS (80-120) 12/09/17 08:25 Random Glucose 113 mg/dL (74-106) H 12/09/17 05:56 Hemoglobin A1c % 6.6 % (4.8-6.0) H D 12/09/17 05:56 Calcium 8.2 mg/dL (8.5-10.1) L 12/09/17 05:56 Phosphorus 3.8 mg/dL (2.5-4.9) 12/09/17 05:56 Magnesium 2.2 mg/dL (1.8-2.4) 12/09/17 05:56 Total Bilirubin 0.5 mg/dL (0.2-1.0) D 12/09/17 05:56 AST 19 U/L (15-37) 12/09/17 05:56 ALT 25 U/L (12-78) 12/09/17 05:56 Alkaline Phosphatase 71 U/L (45-117) 12/09/17 05:56 Creatine Kinase 220 IU/L (39-308) 12/09/17 05:56 Creatine Kinase Index 3.6 % (0.0-5.0) 12/09/17 05:56 CK-MB (CK-2) 7.976 ng/mL (0.5-3.6) H 12/09/17 05:56 Troponin I 0.17 ng/ml (0.00-0.05) H D 12/09/17 05:56 Total Protein 6.6 g/dl (6.4-8.2) 12/09/17 05:56 Albumin 3.7 g/dl (3.4-5.0) 12/09/17 05:56 Triglycerides 92 mg/dL (35-160) 12/08/17 20:30 Cholesterol 112 mg/dL (50-200) 12/08/17 20:30 Total LDL Cholesterol 65 mg/dL (5-100) 12/08/17 20:30 HDL Cholesterol 43 mg/dL (40-60) 12/08/17 20:30 Vitamin B12 433 pg/ml (180-914) 12/09/17 05:56 TSH 3.48 uIU/ml (0.358-3.74) D 12/09/17 05:56 Urine Color Cancelled 12/08/17 23:06 Urine Appearance Cancelled 12/08/17 23:06 Urine pH Cancelled 12/08/17 23:06 Ur Specific [place] Cancelled 12/08/17 23:06 Urine Protein Cancelled 12/08/17 23:06 Urine Glucose (UA) Cancelled 12/08/17 23:06 Urine Ketones Cancelled 12/08/17 23:06 Urine Blood Cancelled 12/08/17 23:06 Urine Nitrite Cancelled 12/08/17 23:06 Urine Bilirubin Cancelled 12/08/17 23:06 Urine Urobilinogen Cancelled 12/08/17 23:06 Ur Leukocyte Esterase Cancelled 12/08/17 23:06 Blood Type A POSITIVE 12/08/17 20:30 Antibody Screen Negative 12/08/17 20:30 cxr: clear lungs carotids 11/2017: no sig stenosis ecg: sr, 1st avb, nl qtc, rbbb a/p: 72 m hx htn, hld, dm, here with left sided numbness/weakness. possible cva, tia: -carotids, head ct unremarkable -mri pending -check echo, monitor tele -neuro following htn: -stable, cont home bb hld: -cont statin trop elevation: -borderline trop elevation with flat trend and nl ck, not c/w acs -check echo
--- NOTE | 2017-12-09 14:19 | PN ---
Progress Note (short form) - Note Progress Note: Subjective: The patient was seen and examined at the bedside, he states that his left sided weakness has resolved Current Medications Generic Name Dose Route Start Last Admin Trade Name Vee PRN Reason Stop Dose Admin Aspirin 81 mg 12/09/17 10:00 12/09/17 10:40 Ecotrin - PO 81 mg DAILY MICHAEL Administration Atorvastatin Calcium 80 mg 12/09/17 22:00 Lipitor - PO HS MICHAEL Chlorthalidone 12.5 mg 12/09/17 10:00 12/09/17 10:40 [place] - PO 12.5 mg DAILY MICHAEL Administration Cholecalciferol 2,000 unit 12/09/17 10:00 12/09/17 10:40 Vitamin D3 - PO 2,000 unit DAILY MICHAEL Administration Sodium Chloride 1,000 mls @ 42 mls/hr 12/08/17 20:00 12/08/17 20:35 Normal Saline - IV 42 mls/hr ASDIR MICHAEL Administration Insulin Aspart 1 vial 12/09/17 07:00 12/09/17 11:48 Novolog Vial Sliding Scale - SQ Not Given ACHS MICHAEL Protocol Metoprolol Succinate 25 mg 12/09/17 10:00 12/09/17 10:40 Toprol Xl - PO 25 mg DAILY MICHAEL Administration Objective: Vital Signs Period Temp Pulse Resp BP Sys/Cummins Pulse Ox Last 24 Hr 98.0 F-98.3 F 55-76 16-21 116-137/54-91 96-99 Physical Exam: General: NAD, A&Ox3 Lungs: CTA bilaterally Heart: RRR, S1S2 Abd: Soft, non-tender, non-distended. Normoactive bowel sounds Ext: Warm, well-perfused Neuro: CN 2-12 intact CBCD WBC 5.8 K/mm3 (4.0-10.0) 12/09/17 05:56 RBC 4.21 M/mm3 (4.00-5.60) 12/09/17 05:56 Hgb 13.3 GM/dL (11.7-16.9) 12/09/17 05:56 Hct 39.3 % (35.4-49) 12/09/17 05:56 MCV 93.5 fl (80-96) 12/09/17 05:56 MCHC 33.8 g/dl (32.0-35.9) 12/09/17 05:56 RDW 12.7 % (11.9-15.9) 12/09/17 05:56 Plt Count 213 K/MM3 (134-434) 12/09/17 05:56 MPV 8.7 fl (7.5-11.1) 12/09/17 05:56 CMP Sodium 142 mmol/L (136-145) 12/09/17 05:56 Potassium 4.1 mmol/L (3.5-5.1) 12/09/17 05:56 Chloride 107 mmol/L (98-107) 12/09/17 05:56 Carbon Dioxide 30 mmol/L (21-32) 12/09/17 05:56 Anion Gap 5 (8-16) L 12/09/17 05:56 BUN 15 mg/dL (7-18) 12/09/17 05:56 Creatinine 0.9 mg/dL (0.7-1.3) 12/09/17 05:56 Creat Clearance w eGFR > 60 (>60) 12/09/17 05:56 Random Glucose 113 mg/dL (74-106) H 12/09/17 05:56 Calcium 8.2 mg/dL (8.5-10.1) L 12/09/17 05:56 Total Bilirubin 0.5 mg/dL (0.2-1.0) D 12/09/17 05:56 AST 19 U/L (15-37) 12/09/17 05:56 ALT 25 U/L (12-78) 12/09/17 05:56 Alkaline Phosphatase 71 U/L (45-117) 12/09/17 05:56 Total Protein 6.6 g/dl (6.4-8.2) 12/09/17 05:56 Albumin 3.7 g/dl (3.4-5.0) 12/09/17 05:56 CARDIAC ENZYMES Creatine Kinase 220 IU/L (39-308) 12/09/17 05:56 Troponin I 0.17 ng/ml (0.00-0.05) H D 12/09/17 05:56 Assessment: This is a 72 year old male with PMHx of DN, hyperlipidemia, HTN, rheumatic heart disease who presented to the ED with left sided weakness Plan: 1) Left sided weakness - Resolved - TIA vs. CVA - Head CT with no evidence of acute intracranial pathology - Carotid doppler with small plaques at the right common carotid bifurcation and bulb with a moderate sized plaque at the origin of the external carotid artery without evidence of hemodynamically significant stenosis -
--- NOTE | 2017-12-09 17:32 | PN ---
Progress Note, SCHO[employer]AM[employer]ER - Note Progress Note: Dysphagia consultation received. Chart review completed. Pt is out of the room for MRI. 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 Will try again at another time.
--- NOTE | 2017-12-09 17:51 | CONSULT ---
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, TIA Cardiovascular: Yes: HTN, Hyperlipdemia Endocrine: Yes: Diabetes Mellitus - Past Surgical History Past Surgical History: Yes: Hernia Repair - Smoking History Smoking history: Former smoker (20 year history tobacco out of pipe) Have you smoked in the past 12 months: No If you are a former smoker, when did you quit?: 1987 - Alcohol/Substance Use Hx Alcohol Use: Yes (DAILY) Number of Drinks Daily: 1 (Rum) History of Substance Use: reports: None - Social History ADL: Independent History of Recent Travel: No History - Admission Reason For Visit: TCI Speech Evaluation - Communication Primary Language: NIGERIAN Communication: Yes: Within Normal Limits Oral Expression Ability: Yes: No Impairment - Speech Production Apraxia: No Able to Make Needs Known: Yes: WNL Intelligibility: Yes: WNL - Speech Characteristics Voice Loudness: Mildly Soft/Quiet Voice Pitch: Yes: Mildly Low Voice Phonatory-based Quality: Yes: Normal Speech Pattern: Normal Nasal Resonance: Normal Articulation: Yes: Precise Rate of Speech: Intact Voice Comment: adequate airway protection, reduced vocal quality - Language/Auditory Comprehension Follows: Yes: 1 Stage Simple Commands Observation: Able to respond to yes/no queries: Yes, Yes/No Confusion: No, Comprehends Conversational Speech: Yes, Benefits from Slow Speech: No, Benefits from Repetiton: No, Benefits from Increased Volume of Speech: No - Language/Verbal Expression Able to Respond to Simple Queries: Yes: WNL Able to Communicate Wants and Needs: Yes: WNL Functional Communication Status: Yes: WNL Aware of Errors: Yes Attempts to Correct Errors: Yes Use of Gestures: No Written Expression: Not examined Oral Expression: WFL Reading Comprehension: Not examined Calculations: Not examined Attention: Yes: Intact - Memory/Perception MCC Memory: Yes: Mildly Impaired Short Term Memory: Yes: Mildly Impaired - Swallow Evaluation/Bedside Assessment Current Nutritional Intake: NPO Oral Secretions: Yes: WFL Tracheostomy Present: No Patient on Ventilator: No Dentition: Yes: Edentulous, Missing Teeth Facial Symmetry at Rest: Symmetrical Facial Symmetry on Retraction: Symmetrical Facial Movement: Controlled Sensation: Normal Facial Comment: WFL for speech and swallowing purposes Jaw Position: Closed at Rest Against Resistance Opening: Normal Against Resistance Closing: Normal Pucker Lips: Normal Smile: Normal Lips, Comment: WFL for speech and swallowing purposes Lingual Movement: Normal Lingual Speed of Movement: Normal Lingual Movement Strgth Against Opposition: Normal Lingual Movement Characteristics: Normal Lingual Comment: WFL for speech and swallowing purposes Soft Palate Description: Normal Color Hard Palate Description: Normal Color Gag Reflex: Weak Laryngeal Elevation: Impaired (possibly from intubation) Needs Assistance: Yes Rate of Intake: WFL Bolus Size: Small Labial Seal: WFL Chewing: WFL Oral Prep Time: WFL A-P Transit: WFL Timing of Swallow: WFL Odynophagia: Oral Coughing/Throat Clear: No Change in Voice: No Other Findings/Remarks: 72 yo female seem at bedside for swallow eval to r/o dysphagia. Pt is verbal, A &Ox2 cooperative. Admitted for chest pain, vomiting. History: right lung CA HTN lupus recurrent anemia. Adequate airway protection and reduced vocal quality. Pt given po trials of pureed only with assistance revealed good acceptance, bolus formation and transport adequate. Pharyngeal swallow is mildly delayed with no cough or changes in respiration or voicing. Pt refused a more solid consistency at this time. Thin liquids trials were unremarkable for aspiration at this time. Recommendations - Speech Evaluation, Impression/Plan Impression: 72 yo female presents with mild to moderate matias-pharyngeal dysphagia. Pt is able to tolerate purees and thin liquids without s/s of aspiration. Speech sample si WNL at this time. Group Home Goals: tolerate the least restrictive diet without s/s of aspiration. Short Term Goals: tolerate purees and thin liquids without s/s of aspiration. Recommended Frequency for Therapy: Follow Up PRN - Dysphagia Impressions/Plan Swallowing Skills: Impaired Dysphagia Impressions: Mild Impairment, Moderate Impairment, Risk of Aspiration , Refused PO Trials (chewable solids at this time.) *Silent aspiration: cannot be R/O at bedside Dysphagia Treatment Plan: Small Bites, Safe Rate, 1/2 tsp. at a time, Elevate HOB during feed, Other (monitor pulmonary status and nutritional intake.) Dysphagia Evaluation Summary: Trial puree with thin liquids as tolerated. Observe standard aspiration precautions. Monitor intake. Crush meds for safety. PLASTER MOLDER will follow up for diet tolerance and possible solid consistency ungrade. Results given to charge machine operator verbally and to pcp via chart. Recommendations: Modified Barium Swallow (consider) - Recommendations Diet Consistency: Dysphagia Pureed Medication Administration: Crushed with applesauce Liquids: Thin Liquids
--- NOTE | 2017-12-09 18:33 | CONSULT ---
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, TIA Cardiovascular: Yes: HTN, Hyperlipdemia Endocrine: Yes: Diabetes Mellitus - Past Surgical History Past Surgical History: Yes: Hernia Repair - Smoking History Smoking history: Former smoker (20 year history tobacco out of pipe) Have you smoked in the past 12 months: No If you are a former smoker, when did you quit?: 1987 - Alcohol/Substance Use Hx Alcohol Use: Yes (DAILY) Number of Drinks Daily: 1 (Rum) History of Substance Use: reports: None - Social History ADL: Independent History of Recent Travel: No History - Admission Reason For Visit: TCI - Hearing Hearing: Normal Hearing Aide: No With Patient: No Speech Evaluation - Communication Primary Language: TURKMEN Communication: Yes: Within Normal Limits Oral Expression Ability: Yes: No Impairment - Speech Production Apraxia: No Intelligibility: Yes: WNL - Speech Characteristics Voice Loudness: Normal Voice Pitch: Yes: Normal Voice Phonatory-based Quality: Yes: Normal Speech Pattern: Normal Nasal Resonance: Normal Articulation: Yes: Precise Rate of Speech: Intact Voice Comment: adequate airway protection, reduced vocal quality - Language/Auditory Comprehension Follows: Yes: 1 Stage Simple Commands Observation: Able to respond to yes/no queries: Yes, Yes/No Confusion: No, Comprehends Conversational Speech: Yes, Benefits from Slow Speech: No, Benefits from Repetiton: No, Benefits from Increased Volume of Speech: No - Language/Verbal Expression Able to Respond to Simple Queries: Yes: WNL Able to Communicate Wants and Needs: Yes: WNL Functional Communication Status: Yes: WNL Aware of Errors: Yes Attempts to Correct Errors: Yes Use of Gestures: No Written Expression: Not examined Oral Expression: WFL Reading Comprehension: Not examined Calculations: Not examined Attention: Yes: Intact - Memory/Perception moth exterminator Memory: Yes: WNL Short Term Memory: Yes: WNL - Swallow Evaluation/Bedside Assessment Current Nutritional Intake: Regular, Thin Liquids Tracheostomy Present: No Patient on Ventilator: No Dentition: Yes: Adequate Facial Symmetry at Rest: Symmetrical Facial Symmetry on Retraction: Symmetrical Facial Movement: Controlled Sensation: Normal Facial Comment: WFL for speech and swallowing purposes Jaw Position: Closed at Rest Against Resistance Opening: Normal Against Resistance Closing: Normal Pucker Lips: Normal Smile: Normal Lips, Comment: WFL for speech and swallowing purposes Lingual Movement: Normal Lingual Speed of Movement: Normal Lingual Movement Strgth Against Opposition: Normal Lingual Movement Characteristics: Normal Lingual Comment: WFL for speech and swallowing purposes Hard Palate Description: Normal Color Gag Reflex: Strong Laryngeal Elevation: WFL Needs Assistance: No Bolus Size: Small Labial Seal: WFL Chewing: WFL Oral Prep Time: WFL A-P Transit: WFL Timing of Swallow: WFL Coughing/Throat Clear: No Change in Voice: No Other Findings/Remarks: 72 yo male seen at bedside on unit for swallow eval to rule out dysphagia. Pt is verbal A&Ox3 cooperative. Pt admitted to [facility] for left side weakness (now resolved). Pt presents with adequate airway protection, and good vocal quality. Pt given po trials of pureed, regular solids without assistance revealed good acceptance, adequate bolus control and transport. Pharyngeal swallows appear timely with no cough or changes in respiration or voicing. Thin liquids trials were unremarkable for aspiration at this time. Recommendations - Speech Evaluation, Impression/Plan Impression: 72 yo male presents with no s/s of dysphagia and / or aspiration at this time. Speech and language skills are within normal limits. Face Worker Goals: tolerate the least restrictive diet without s/s of aspiration. Short Term Goals: tolerate purees, regular solids and thin liquids without s/s of aspiration. Recommended Frequency for Therapy: Follow Up PRN - Dysphagia Impressions/Plan Swallowing Skills: WF Dysphagia Impressions: No Impairment Dysphagia Treatment Plan: Safe Rate, OOB for meals, OOB for 1 h. after meals Dysphagia Evaluation Summary: Pt is able to tolerate purees, regular solids without s/s of aspiration. Monitor speech and swallowing status. Results given verbally to charge master specialistLUCIANO Green and to pcp via chart - Recommendations Diet Consistency: Regular (Na contolled) Medication Administration: Whole with water Liquids: Thin Liquids
[2017-12-09] MEDS ORDERED: ATORVASTATIN CA 80 MG TABLET (FP) PO SCH (22:00)
[2017-12-09] MEDS: SODIUM CHLORIDE 1,000 ML IV SCH (22:09)
[2017-12-10] MEDS: INSULIN SLIDING SCALE (NOVOLOG) 1 VIAL SQ SCH ×2 (06:21→11:18)
[2017-12-10 08:52] VITALS: TEMP 98.3
[2017-12-10] MEDS: ASPIRIN COATED 81 MG TABLET.EC PO SCH (09:57)
[2017-12-10] MEDS: CHLORTHALIDONE 25 MG TABLET PO SCH (09:58)
[2017-12-10] MEDS: metoPROLOL SUCCINATE 25 MG TAB.SR.24H (FP) PO SCH (09:58)
[2017-12-10] MEDS: CHOLECALCIFEROL (VITAMIN D3) 1,000 UNIT TABLET (FP) PO SCH (09:58)
--- NOTE | 2017-12-10 09:58 | PN ---
Progress Note (short form) - Note Progress Note: Neurology HISTORY OF PRESENT ILLNESS: Pt is a 72 yo M with PMHx of HTN, HLD, DM presenting with 1 day hx of recurrent L sided weakness and numbness. Pt noted a "floating sensation" of his L side from his neck to his leg following exertion ( walking uphill then up the stairs to his room) on day of admission. After resting for a while (in the presence of his ), they called 911. He walked downstairs independently to meet the EMS, but then had recurrence of the weakness of his L side. No hx of palpitations prior or during the period. No SOB , orthopnea/PND/ leg swelling /chest pain/slurring of speech/blurring of vision or headaches. Patient noted that his blood pressure was elevated to about 170/ 90 and had gradually reverted back to about 130/80 in the ER. Per notes, on arrival at the ED, his symptoms had resolved with NIH score-1 and pt did not receive tPA due to improving exam. CT head without acute changes. Is on daily ASA. MRI brain reviewed and without acute changes. Echo reviewed and normal LV function as well as EF. Patient reports no symptoms this AM. Discussed TIA pathophysiology and stroke education and risk factor reduction discussed including diet modification and exercise. Active Medications Aspirin (Ecotrin -) 81 mg PO DAILY [facility] Last Admin: 12/09/17 10:40 Dose: 81 mg Atorvastatin Calcium (Lipitor -) 80 mg PO HS [facility] Last Admin: 12/09/17 22:08 Dose: 80 mg Chlorthalidone (Hygroton -) 12.5 mg PO DAILY [facility] Last Admin: 12/09/17 10:40 Dose: 12.5 mg Cholecalciferol (Vitamin D3 -) 2,000 unit PO DAILY [facility] Last Admin: 12/09/17 10:40 Dose: 2,000 unit Sodium Chloride (Normal Saline -) 1,000 mls @ 42 mls/hr IV ASDIR [facility] Last Admin: 12/09/17 22:09 Dose: 42 mls/hr Insulin Aspart (Novolog Vial Sliding Scale -) 1 vial SQ ACHS [facility] PRN Reason: Protocol Last Admin: 12/10/17 06:21 Dose: Not Given Metoprolol Succinate (Toprol Xl -) 25 mg PO DAILY [facility] Last Admin: 12/09/17 10:40 Dose: 25 mg PHYSICAL EXAMINATION Vital Signs Period Temp Pulse Resp BP Sys/Cummins Pulse Ox Last 24 Hr 98.2 F-98.6 F 62-70 16-20 122-154/66-88 96-99 GENERAL: Obese, pleasant, Awake, alert, and fully oriented, obeys commands,in no acute distress, on room air. HEAD: Normal with no signs of trauma. EYES: Normal gaze, Pupils equal, round and reactive to light, extraocular movements intact, sclera anicteric, conjunctiva clear. EARS, NOSE, THROAT: Ears normal, nares patent, oropharynx clear without exudates. Moist mucous membranes. NECK: Normal range of motion, supple without lymphadenopathy, JVD, or masses. LUNGS: Breath sounds equal, clear to auscultation bilaterally. No wheezes, and no crackles. HEART: Regular rate and rhythm, normal S1 and S2 without murmur, rub or gallop. ABDOMEN: Soft, nontender, obese, normoactive bowel sounds, no guarding, no rebound, no masses. MUSCULOSKELETAL: Normal range of motion at all joints. No bony deformities or tenderness. No CVA tenderness. UPPER EXTREMITIES: 2+ pulses, warm, well-perfused. No cyanosis. No clubbing. No peripheral edema. Absent drift bilaterally LOWER EXTREMITIES: 2+ pulses, warm, well-perfused. No calf tenderness. No peripheral edema. Absent drift bilaterally, absent limb ataxia NEUROLOGICAL: Absent facial palsy, Cranial nerves II-XII intact. Normal speech , no aphasia, no dysarthria. gait deferred. PSYCHIATRIC: Cooperative. Good eye contact. Appropriate mood and affect. CBCD WBC 5.8 K/mm3 (4.0-10.0) 12/09/17 05:56 RBC 4.21 M/mm3 (4.00-5.60) 12/09/17 05:56 Hgb 13.3 GM/dL (11.7-16.9) 12/09/17 05:56 Hct 39.3 % (35.4-49) 12/09/17 05:56 MCV 93.5 fl (80-96) 12/09/17 05:56 MCHC 33.8 g/dl (32.0-35.9) 12/09/17 05:56 RDW 12.7 % (11.9-15.9) 12/09/17 05:56 Plt Count 213 K/MM3 (134-434) 12/09/17 05:56 MPV 8.7 fl (7.5-11.1) 12/09/17 05:56 CMP Sodium 142 mmol/L (136-145) 12/09/17 05:56 Potassium 4.1 mmol/L (3.5-5.1) 12/09/17 05:56 Chloride 107 mmol/L (98-107) 12/09/17 05:56 Carbon Dioxide 30 mmol/L (21-32) 12/09/17 05:56 Anion Gap 5 (8-16) L 12/09/17 05:56 BUN 15 mg/dL (7-18) 12/09/17 05:56 Creatinine 0.9 mg/dL (0.7-1.3) 12/09/17 05:56 Creat Clearance w eGFR > 60 (>60) 12/09/17 05:56 Calcium 8.2 mg/dL (8.5-10.1) L 12/09/17 05:56 Total Bilirubin 0.5 mg/dL (0.2-1.0) D 12/09/17 05:56 AST 19 U/L (15-37) 12/09/17 05:56 ALT 25 U/L (12-78) 12/09/17 05:56 Alkaline Phosphatase 71 U/L (45-117) 12/09/17 05:56 Total Protein 6.6 g/dl (6.4-8.2) 12/09/17 05:56 Albumin 3.7 g/dl (3.4-5.0) 12/09/17 05:56 ASSESSMENT/PLAN: 72 yo M with PMHx of HTN, HLD, DM presenting with 1 day hx of recurrent L sided weakness and numbness. Not a TPA candidate with improving exam and NIHSS of 1. CT head without acute changes Carotid dopplers reviewed and small to mod plaques without HD signficiant stenosis Echo reviewed and nml LV function and EF MRI brain without acute changes, no infarct Continue ASA 81mg Continue Statin, goal LDL <100 Cardiology follow up tele monitoring BP control, goal <140/90 for now, <130/80 as outpatient Tight glycemic control Continue Metformin
--- NOTE | 2017-12-10 10:46 | PN ---
Progress Note (short form) - Note Progress Note: s: no cp sob palps dizzy o: Vital Signs Period Temp Pulse Resp BP Sys/Cummins Pulse Ox Last 24 Hr 98.2 F-98.6 F 62-70 16-20 122-154/66-88 96-99 nad no jvd rrr s1s2 no mrg cta bl nl eff aaox3 no le e/c/c abd nt nd pos bs no jaundice diaphoresis Current Medications Generic Name Dose Route Start Last Admin Trade Name Vee PRN Reason Stop Dose Admin Aspirin 81 mg 12/09/17 10:00 12/10/17 09:57 Ecotrin - PO 81 mg DAILY MICHAEL Administration Atorvastatin Calcium 80 mg 12/09/17 22:00 12/09/17 22:08 Lipitor - PO 80 mg HS MICHAEL Administration Chlorthalidone 12.5 mg 12/09/17 10:00 12/10/17 09:58 Hygroton - PO 12.5 mg DAILY MICHAEL Administration Cholecalciferol 2,000 unit 12/09/17 10:00 12/10/17 09:58 Vitamin D3 - PO 2,000 unit DAILY MICHAEL Administration Sodium Chloride 1,000 mls @ 42 mls/hr 12/08/17 20:00 12/09/17 22:09 Normal Saline - IV 42 mls/hr ASDIR MICHAEL Administration Insulin Aspart 1 vial 12/09/17 07:00 12/10/17 06:21 Novolog Vial Sliding Scale - SQ Not Given ACHS MICHAEL Protocol Metoprolol Succinate 25 mg 12/09/17 10:00 12/10/17 09:58 Toprol Xl - PO 25 mg DAILY MICHAEL Administration CBC, BMP 12/09/17 05:56 12/09/17 05:56 cxr: clear lungs carotids 11/2017: no sig stenosis ecg: sr, 1st avb, nl qtc, rbbb tele: sr, artifact echo 11/2017: nl lv/rv,no sig valve path, IASA a/p: 72 m hx htn, hld, dm, here with left sided numbness/weakness. possible cva, tia: -carotids, head ct, mri brain, echo unremarkable -tele benign -neuro following htn: -stable, cont home bb hld: -cont statin trop elevation: -borderline trop elevation with flat trend and nl ck, not c/w acs -echo unremarkable cardiac gallegos stable for dc
[2017-12-10 12:31] VITALS: BP 144/84; PULSE 68
--- NOTE | 2017-12-10 12:36 | DS ---
Physical Examination Vital Signs: Vital Signs Temperature 98.3 F 12/10/17 08:52 Pulse Rate 68 12/10/17 12:00 Respiratory Rate 18 12/10/17 12:00 Blood Pressure 144/84 12/10/17 12:00 O2 Sat by Pulse Oximetry (%) 96 12/10/17 07:28 Labs: CBC, BMP 12/09/17 05:56 12/09/17 05:56 Discharge Summary Reason For Visit: TCI Current Active Problems Diabetes (Acute) HLD (hyperlipidemia) (Acute) HTN (hypertension) (Acute) TIA (transient ischemic attack) (Acute) Condition: Improved - Instructions Diet, Activity, Other Instructions: Please return to the ED with new, persistent, or worsening symptoms. Please follow-up with providers as indicated. Referrals: Georges Scott MD [Staff Physician] - (Please follow-up with your primary care provider within 1 week) Nickolas Tobin MD [Staff Physician] - (Please follow-up with cardiology within 1 week) Julian Dominguez MD [Staff Physician] - (Please follow-up with neurology within 1 week ) Disposition: HOME - Home Medications Comprehensive Discharge Medication List: Ambulatory Orders Aspirin [Aspir 81] 81 mg PO DAILY 12/05/16 Atorvastatin Calcium 40 mg PO DAILY tablet 12/05/16 Chlorthalidone 12.5 mg PO DAILY tablet 12/05/16 Cholecalciferol (Vitamin D3) [Vitamin D3] 2,000 unit PO DAILY tablet 12/05/16 Metoprolol Succinate 25 mg PO DAILY tablet 03/16/17 Metformin HCl [Glucophage] 1,000 mg PO DAILY 10/09/17
== END 2017-12-10 13:34 | disposition home or self-care (01) ==
LOC: JER 19:46 → UNDOADMOB 21:45 → INTOOBSV 21:45 → JERBED 21:45 → J4S 12-09 10:00 → JERBED 12-09 13:44 → J4S 12-09 13:44
PROVIDERS: ADMIT Internal Medicine; ATTEND Registered Nurse
PROC: 3E0337Z Introduction of Electrolytic and Water Balance Substance into Peripheral Vein, Percutaneous Approach (ICD-10-PCS; principal; 2017-12-09)
DX: G45.9 Transient cerebral ischemic attack, unspecified (principal); R77.8 Other specified abnormalities of plasma proteins; I10 Essential (primary) hypertension; E78.5 Hyperlipidemia, unspecified; E11.9 Type 2 diabetes mellitus without complications; Z79.82 Long term (current) use of aspirin; Z79.84 Long term (current) use of oral hypoglycemic drugs; Z87.891 Personal history of nicotine dependence
CPT/HCPCS: 36415; 70450-TC; 70551-TC; 71045-TC-FY; 80053; 81003; 82465; 82550; 82553; 82607; 82747; 82962; 83036; 83718; 83721; 83735; 84100; 84443; 84478; 84484; 85014; 85025; 85610; 85651; 85730; 86850; 86900; 86901; 93005; 93010; 93306-TC; 93880-TC; 97116-GP; 97161-GP; 99285-25; G0378